=== PATIENT | male | born 1965 | race Asian ===

== ENCOUNTER 2018-10-27 19:14 | Emergency (ER) | payer SELFPAY ==
[2018-10-27] MEDS ORDERED: Cyclobenzaprine 10 MG TAB ONE (21:25)
[2018-10-27] MEDS ORDERED: Acetaminophen 500 MG TAB ONE (21:26)
[2018-10-27] MEDS ORDERED: Ketorolac Tromethamine 30 MG/ML VIAL ONE (21:26)
--- NOTE | 2018-10-27 21:32 | CT ---
CT BRAIN NONCONTRAST: HISTORY: 53-year-old male status post-acute head injury. FINDINGS: There is no midline shift or any other mass effect. There is no evidence of acute intracranial hemor rhage, large cortical infarct, obstructive hydrocephalus, or extraaxial fluid collection. The calvar ium is intact. IMPRESSION: No acute intracranial findings. rudy POS: JIN
--- NOTE | 2018-10-27 21:33 | CT ---
CT CERVICAL SPINE NONCONTRAST: HISTORY: 53-year-old male status post-acute cervical trauma. FINDINGS: There are no jumped or perched facets. There is no evidence of acute fracture. The vertebral body h eights are maintained. There is no prevertebral soft tissue swelling. IMPRESSION: No evidence of acute fracture or acute traumatic subluxation. rudy POS: JIN
== END 2018-10-27 21:38 | disposition home or self-care (01) ==
LOC: MADERS 19:14
DX: S13.4XXA Sprain of ligaments of cervical spine, initial encounter (principal); S40.012A Contusion of left shoulder, initial encounter; F17.210 Nicotine dependence, cigarettes, uncomplicated; E78.5 Hyperlipidemia, unspecified; V89.2XXA Person injured in unspecified motor-vehicle accident, traffic, initial encounter
CPT/HCPCS: 70450; 72125; 96372; J1885